=== PATIENT | female | born 1995 | race Caucasian/White ===

== ENCOUNTER 2019-03-25 10:07 | Observation (INO) | payer OTHER ==
--- NOTE | 2019-03-25 11:56 | PDOC ---
Documentation entered by Donya Chapman SCRIBE, acting as scribe for Diana Morrison MD. Diana Morrison MD: This documentation has been prepared by the Adela ponce Nirvannie, SCRIBE, under my direction and personally reviewed by me in its entirety. I confirm that the documentation accurately reflects all work, treatment, procedures, and medical decision making performed by me. History of Present Illness - General Chief Complaint: Blood Transfusion Stated Complaint: BLOOD TRANSFUSION History Source: Patient Exam Limitations: No Limitations - History of Present Illness Initial Comments: 03/25/19 11:55 23-year-old female here from PCPs office for report of anemia. Patient had blood drawn for routine visit 2 weeks ago was found to have a hemoglobin of 6.6. Was told to come to the ED yesterday however she was unable to come due to scheduling difficulty. Patient does currently have 4 kids denies any history of heavy vaginal bleeding or irregular menses no history of known prior anemia. No travel no fever no chills no weight loss patient had seen her PCP 2 weeks ago for concerns of a left breast lump. Denies any history of breast cancer has not had any breast imaging thus far Past History - Past Medical History Allergies/Adverse Reactions: Allergies Allergy/AdvReac Type Severity Reaction Status Date / Time No Known Allergies Allergy Verified 03/25/19 10:22 Home Medications: Ambulatory Orders Ferrous Sulfate 325 mg PO BID #60 tablet 03/25/19 Asthma: No Cancer: No Cardiac Disorders: No COPD: No Diabetes: No HTN: No Seizures: No Thyroid Disease: No - Psycho Social/Smoking Cessation Hx Smoking History: Never smoked Have you smoked in the past 12 months: No Hx Alcohol Use: No Drug/Substance Use Hx: No Hx Substance Use Treatment: No Review of Systems - Review of Systems Comments:: 03/25/19 11:55 Awake alert no acute distress moist mucous membranes lungs are clear bilaterally heart is regular with any murmurs rubs or gallops abdomen is soft nontender skin is warm and dry no rash abdomen soft nontender no CVA tenderness *Physical Exam - Vital Signs Last Vital Signs Temp Pulse Resp BP Pulse Ox 98.3 F 76 16 107/54 L 100 03/25/19 10:17 03/25/19 10:17 03/25/19 10:17 03/25/19 10:17 03/25/19 10:17 ED Treatment Course - LABORATORY CBC & Chemistry Diagram: 03/25/19 12:41 03/25/19 12:41 Medical Decision Making - Medical Decision Making 03/25/19 11:53 Urinary 23-year-old female no past medical history here today complaining of abnormal lab values. Patient states she was being seen by her doctor Dr. Errol Medrano for a concern she had of a breast lump. At that time they decided to send basic lab work labs were drawn 2 weeks ago patient received a call back yesterday stating that she was severely anemic hemoglobin per report was 6.6. Patient denies any history of heavy menses did not feel lightheaded or fatigued. No fevers no chills no history of known anemia no dark black stools or other bleeding. No family history of breast cancer patient states she was not referred for any ultrasound or other follow-up regarding a lump in the PCP felt that it was normal On my exam patient is awake alert no acute distress lungs are clear abdomen is soft nontender plan CBC CMP type and screen to reevaluate for anemia. Will obtain to rule out underlying should patient be anemic she may require transfusion will discuss with patient's PCP Dr. Medrano 03/25/19 15:45 d/w pt regarding risk and benefit of transfusion. at this point is refusing. would like to trial iron supplementation and follow up with DR Medrano. told to call to schedule follow up in the next few days. at this time pt has minimum sxs . not lighteaded, no headache. also recommend fu for her lump in left breast will need breast ultrasound. told to get prescription from pcp. and given fu with breast surgeon, 03/25/19 16:31 pt reconsidered after much time, would like transfusion after, all. dr givens. coveringn for DR Medrano paged for admission. Discharge - Discharge Information Problems reviewed: Yes Clinical Impression/Diagnosis: Anemia Condition: Good - Admission Yes - Additional Discharge Information Prescriptions: Ferrous Sulfate 325 mg PO BID #60 tablet - Follow up/Referral Referrals: Errol Medrano [Primary Care Provider] - - Patient Discharge Instructions Patient Printed Discharge Instructions: Anemia: How Food and Vitamins Can Help , Iron-Deficiency Anemia Additional Instructions: you are anemic with a hemoglobin of 6.8. you should have this followed up with your primary doctor. for feeling short of breath, lightheaded, dizzy, headache or weakness, return for repeat evaluation immediately and possible transfusion. understand your are refusing transfusion today, and you should start taking iron supplement 325mg twice daily for one month. follow up with Dr Medrano call to schedule. - Post Discharge Activity
[2019-03-25 13:05] LABS: BASO % 0.7 % (0-2.0); EOS % 0.8 % (0-4.5); HEMATOCRIT 23.6 % (32.4-45.2); LYMPH % 35.1 % (8-40); MCHC 28.6 g/dl (32.0-36.0); MEAN CELL VOLUME 64.7 fl (80-96); MEAN PLT VOLUME 7.5 fl (7.5-11.1); MONO % 6.6 % (3.8-10.2); NEUT % 56.8 % (42.8-82.8); PLATELET COUNT 339 K/MM3 (134-434); RBC 3.65 M/mm3 (3.60-5.2); RDW 18.4 % (11.6-15.6); WHITE BLOOD COUNT 5.7 K/mm3 (4.0-10.0)
[2019-03-25 13:10] LABS: MCH 18.5 pg (25.7-33.7)
[2019-03-25 13:11] LABS: HEMOGLOBIN 6.8 GM/dL (10.7-15.3)
[2019-03-25 13:28] LABS: ALBUMIN 3.6 g/dl (3.4-5.0); BILIRUBIN,TOTAL 0.3 mg/dL (0.2-1); CALCIUM 8.4 mg/dL (8.5-10.1); CREATININE 0.6 mg/dL (0.55-1.3); POTASSIUM 3.8 mmol/L (3.5-5.1); TOT PROT 7.3 g/dl (6.4-8.2)
[2019-03-25 13:56] LABS: ANISOCYTOSIS 2+; PLATELET ESTIMATE ADEQUATE
[2019-03-25 15:18] LABS: OVALOCYTE 1+
[2019-03-25] MEDS ORDERED: PANTOPRAZOLE 40 MG TABLET ONE (21:29)
[2019-03-25] MEDS: PANTOPRAZOLE 40 MG TABLET PO SCH (21:31)
[2019-03-25 23:42] VITALS: BMI 24.6
[2019-03-26 02:07] LABS: BASO % 0.3 % (0-2.0); EOS % 0.9 % (0-4.5); HEMATOCRIT 26.4 % (32.4-45.2); LYMPH % 31.4 % (8-40); MCHC 30.2 g/dl (32.0-36.0); MEAN CELL VOLUME 66.2 fl (80-96); MONO % 8.5 % (3.8-10.2); NEUT % 58.9 % (42.8-82.8); PLATELET COUNT 304 K/MM3 (134-434); RBC 3.99 M/mm3 (3.60-5.2); RDW 19.8 % (11.6-15.6); WHITE BLOOD COUNT 8.1 K/mm3 (4.0-10.0)
--- NOTE | 2019-03-26 07:26 | HP ---
Admitting History and Physical - Admission History of Present Illness: 23-year-old female here from PCPs office for report of anemia. Patient had blood drawn for routine visit 2 weeks ago for breast lump Was told to come to the ED yesterday however she was unable to come due to scheduling difficulty. Pt denies any history of heavy vaginal bleeding or irregular menses no history of known prior anemia. No travel no fever no chills no weight loss patient Denies any history of breast cancer has not had any breast imaging thus far - Past Medical History Gastrointestinal: Yes: Other (dysphagia) ...LMP: 03/08/19 ...: No - Smoking History Smoking history: Never smoked Have you smoked in the past 12 months: No - Alcohol/Substance Use Hx Alcohol Use: No History of Substance Use: reports: None. denies: Cocaine, Heroin, Marijuana, Prescription, Tranquilizers - Social History ADL: Independent History of Recent Travel: No Home Medications - Allergies Allergies/Adverse Reactions: Allergies Allergy/AdvReac Type Severity Reaction Status Date / Time No Known Allergies Allergy Verified 03/25/19 10:22 - Home Medications Home Medications: Ambulatory Orders Ferrous Sulfate 325 mg PO BID #60 tablet 03/25/19 Review of Systems - Review of Systems Constitutional: reports: Weakness Cardiovascular: denies: Chest Pain, Shortness of Breath Respiratory: denies: Cough Gastrointestinal: reports: Dysphagia. denies: Abdominal Pain, Diarrhea Neurological: reports: No Symptoms Physical Examination Vital Signs: Vital Signs Temperature 98.9 F 03/26/19 05:00 Pulse Rate 81 03/26/19 05:00 Respiratory Rate 18 03/26/19 05:00 Blood Pressure 112/62 03/26/19 05:00 O2 Sat by Pulse Oximetry (%) 99 03/26/19 04:00 Cardiovascular: Yes: Regular Rate and Rhythm, Murmur Respiratory: Yes: Regular, CTA Bilaterally Gastrointestinal: Yes: Normal Bowel Sounds, Soft. 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
[2019-03-26 08:12] LABS: BASO % 0.4 % (0-2.0); EOS % 0.6 % (0-4.5); HEMATOCRIT 25.9 % (32.4-45.2); HEMOGLOBIN 7.9 GM/dL (10.7-15.3); LYMPH % 24.6 % (8-40); MCH 20.1 pg (25.7-33.7); MCHC 30.4 g/dl (32.0-36.0); MEAN CELL VOLUME 66.1 fl (80-96); MEAN PLT VOLUME 7.3 fl (7.5-11.1); MONO % 7.6 % (3.8-10.2); NEUT % 66.8 % (42.8-82.8); PLATELET COUNT 284 K/MM3 (134-434); RBC 3.91 M/mm3 (3.60-5.2); RDW 19.5 % (11.6-15.6); WHITE BLOOD COUNT 7.3 K/mm3 (4.0-10.0)
--- NOTE | 2019-03-26 08:13 | CON.GI ---
Consult Consult Specialty:: GI Referred by:: Dr Davonte Fisher Reason for Consultation:: Dysphagia - History of Present Illness History of Present Illness: Patient is a 23 y/o female with no significant past medical history. Consult was placed for dysphagia. Patient states she has been having difficulty swallowing solid food for 1 month. She states she notices it takes her longer to eat due to the dysphagia. Denies dysphagia with liquids. Patient denies nausea, vomiting, abdominal pain, diarrhea, constipation, melena, rectal bleeding. - History Source History Provided By: Patient Limitations to Obtaining History: No Limitations - Past Medical History ...LMP: 03/08/19 ...: No - Past Surgical History Past Surgical History: Yes: (x 4) - Alcohol/Substance Use Hx Alcohol Use: No History of Substance Use: reports: None. denies: Cocaine, Heroin, Marijuana, Prescription, Tranquilizers - Smoking History Smoking history: Never smoked Have you smoked in the past 12 months: No - Social History Usual Living Arrangement: With Parent ADL: Independent History of Recent Travel: No Home Medications - Allergies Allergies/Adverse Reactions: Allergies Allergy/AdvReac Type Severity Reaction Status Date / Time No Known Allergies Allergy Verified 03/25/19 10:22 - Home Medications Home Medications: Ambulatory Orders Ferrous Sulfate 325 mg PO BID #60 tablet 03/25/19 Review of Systems - Review of Systems Constitutional: reports: No Symptoms Eyes: reports: No Symptoms HENT: reports: No Symptoms Neck: reports: No Symptoms Cardiovascular: reports: No Symptoms Respiratory: reports: No Symptoms Gastrointestinal: reports: Dysphagia Genitourinary: reports: No Symptoms Breasts: reports: No Symptoms Reported Musculoskeletal: reports: No Symptoms Integumentary: reports: No Symptoms Neurological: reports: No Symptoms Endocrine: reports: No Symptoms Hematology/Lymphatic: reports: No Symptoms Psychiatric: reports: No Symptoms Physical Exam-GI Vital Signs: Vital Signs Temperature 98.9 F 03/26/19 05:00 Pulse Rate 81 03/26/19 05:00 Respiratory Rate 18 03/26/19 05:00 Blood Pressure 112/62 03/26/19 05:00 O2 Sat by Pulse Oximetry (%) 99 03/26/19 04:00 Constitutional: Yes: No Distress, Calm Eyes: Yes: Conjunctiva Clear HENT: Yes: Atraumatic Cardiovascular: Yes: Regular Rate and Rhythm Respiratory: Yes: Regular, CTA Bilaterally Gastrointestinal Inspection: Yes: WNL. No: Ascites, Distention, Hernia, Scars, Other ...Auscultate: Yes: Normoactive Bowel Sounds. No: Hyperactive Bowel Sounds, Hypoactive Bowel Sounds, No Bowel Sounds, Other ...Palpate: Yes: Soft. No: Firm/Rigid, Guarding, Hepatomegaly, Mass, Pulsatile Mass, Splenomegaly, Tenderness, Tenderness, Epigastium, Tenderness, Rebound, Other ...Percussion: Yes: Tympanitic. No: Dullness, Fluid Wave, Other Neurological: Yes: Alert, Oriented Psychiatric: Yes: Alert, Oriented Problem List - Problems (1) Dysphagia Code(s): R13.10 - DYSPHAGIA, UNSPECIFIED
--- NOTE | 2019-03-26 08:35 | CONSULT ---
Consultation: CONSULT SERVICE: Hematology/Oncology Resident HISTORY OF PRESENT ILLNESS: 23yo F with no significant history who was sent her from her PCP office due to routine lab draw. Pt was found to be anemic at her PCP office, and confirmed to be anemic here upon initial presentation down to 6.8gm. Pt denies any irregular menses, heavy menses. Pt reports she did have some slight shortness of breath which prompted her routine blood draw which has now resolved. Pt has never taken iron pills or other supplements. She has never seen a aircraft time clerk and is generally healthy. PMHx: no significant history PSHx: Denies SoHx: Tobacco - None Alcohol - None Drugs - Denies LMP 1 month ago; usually regular FamHx: Noncontributory; no clotting or bleeding disorders noted REVIEW OF SYSTEMS: As per HPI PHYSICAL EXAMINATION Vital Signs - 24 hr 03/25/19 03/25/19 03/25/19 10:17 14:30 17:50 Temperature 98.3 F 98 F Pulse Rate 76 Pulse Rate [ 77 78 Apical] Respiratory 16 20 20 Rate Blood Pressure 107/54 L Blood Pressure 106/60 106/66 [Right Arm] O2 Sat by Pulse 100 100 100 Oximetry (%) 03/25/19 03/25/19 03/25/19 19:46 23:31 23:56 Temperature 98.2 F 98.3 F Pulse Rate 71 Pulse Rate [ 65 Apical] Respiratory 20 17 17 Rate Blood Pressure 113/62 Blood Pressure 105/67 [Right Arm] O2 Sat by Pulse 100 100 Oximetry (%) 03/26/19 03/26/19 03/26/19 00:44 01:03 04:00 Temperature 98 F Pulse Rate 70 Pulse Rate [ Apical] Respiratory 18 18 18 Rate Blood Pressure 112/63 Blood Pressure [Right Arm] O2 Sat by Pulse 100 99 Oximetry (%) 03/26/19 05:00 Temperature 98.9 F Pulse Rate 81 Pulse Rate [ Apical] Respiratory 18 Rate Blood Pressure 112/62 Blood Pressure [Right Arm] O2 Sat by Pulse Oximetry (%) GENERAL: Awake, alert, and fully oriented, in no acute distress. HEENT: NC/AT, EOMI, KEISHA, sclera anicteric, no conjunctival pallor, MMM NECK: No JVD, no lymphadenopathy LUNGS: CTA bilaterally. No wheezes, and no crackles. No accessory muscle use. HEART: RRR, normal S1 and S2 without murmur ABDOMEN: Soft, nontender, not distended, normoactive bowel sounds, no guarding, no rebound, no masses. No hepatomegaly EXTREMITIES: 2+ pulses, warm, well-perfused. No calf tenderness. No peripheral edema. PSYCHIATRIC: Cooperative. Good eye contact. Appropriate mood and affect. SKIN: Warm, dry, no rashes or lesions noted. Laboratory Results - last 24 hr 03/25/19 03/25/19 03/25/19 12:41 12:41 12:41 WBC 5.7 RBC 3.65 Hgb 6.8 L* Hct 23.6 L D MCV 64.7 L MCH 18.5 L D MCHC 28.6 L RDW 18.4 H Plt Count 339 D MPV 7.5 Absolute Neuts (auto) 3.2 Neutrophils % 56.8 Lymphocytes % 35.1 D Monocytes % 6.6 Eosinophils % 0.8 Basophils % 0.7 D Nucleated RBC % 0 Hypochromia 3+ Platelet Estimate Adequate Platelet Comment No clumping noted Poikilocytosis 1+ Anisocytosis 2+ Microcytosis 2+ Ovalocytes 1+ Haptoglobin 92 Sodium 142 Potassium 3.8 Chloride 111 H Carbon Dioxide 25 Anion Gap 5 L BUN 8.0 Creatinine 0.6 Est GFR (CKD-EPI)AfAm 147.86 Est GFR (CKD-EPI)NonAf 127.58 Random Glucose 79 Calcium 8.4 L Iron 10 L TIBC 412 Iron Saturation 2 L Unsaturated IBC 402 H Ferritin 1.7 L Total Bilirubin 0.3 AST 17 ALT 17 Alkaline Phosphatase 86 Total Protein 7.3 Albumin 3.6 Serum , Qual Blood Type Antibody Screen Crossmatch 03/25/19 03/25/19 03/26/19 12:41 12:41 01:53 WBC 8.1 RBC 3.99 Hgb 8.0 L Hct 26.4 L MCV 66.2 L MCH 20.0 L MCHC 30.2 L RDW 19.8 H Plt Count 304 MPV 7.0 L Absolute Neuts (auto) 4.8 Neutrophils % 58.9 Lymphocytes % 31.4 Monocytes % 8.5 Eosinophils % 0.9 Basophils % 0.3 Nucleated RBC % 0 Hypochromia Platelet Estimate Platelet Comment Poikilocytosis Anisocytosis Microcytosis Ovalocytes Haptoglobin Sodium Potassium Chloride Carbon Dioxide Anion Gap BUN Creatinine Est GFR (CKD-EPI)AfAm Est GFR (CKD-EPI)NonAf Random Glucose Calcium Iron TIBC Iron Saturation Unsaturated IBC Ferritin Total Bilirubin AST ALT Alkaline Phosphatase Total Protein Albumin Serum , Qual Negative Blood Type O POSITIVE Antibody Screen Negative Crossmatch See Detail 03/26/19 06:40 WBC 7.3 RBC 3.91 Hgb 7.9 L Hct 25.9 L MCV 66.1 L MCH 20.1 L MCHC 30.4 L RDW 19.5 H Plt Count 284 MPV 7.3 L Absolute Neuts (auto) 4.9 Neutrophils % 66.8 Lymphocytes % 24.6 D Monocytes % 7.6 Eosinophils % 0.6 Basophils % 0.4 Nucleated RBC % 0 Hypochromia Platelet Estimate Platelet Comment Poikilocytosis Anisocytosis Microcytosis Ovalocytes Haptoglobin Sodium Potassium Chloride Carbon Dioxide Anion Gap BUN Creatinine Est GFR (CKD-EPI)AfAm Est GFR (CKD-EPI)NonAf Random Glucose Calcium Iron TIBC Iron Saturation Unsaturated IBC Ferritin Total Bilirubin AST ALT Alkaline Phosphatase Total Protein Albumin Serum , Qual Blood Type Antibody Screen Crossmatch Active Medications Generic Name Dose Route Start Last Admin Trade Name Freq PRN Reason Stop Dose Admin Iron Sucrose 200 mg/ Sodium 100 mls @ 100 mls/hr 03/26/19 09:00 Chloride IVPB 03/26/19 09:59 ONCE ONE Pantoprazole Sodium 40 mg 03/25/19 21:15 03/25/19 21:31 Protonix - PO 40 mg DAILY CECE Administration ASSESSMENT/PLAN: Severe Microcytic anemia Dysphagia --Reticulocyte count added on to today's labs --Iron studies performed which indicate severe iron deficiency --Agree with iron sucrose already placed --Iron deficit 583mg: Continue Venofer 200mg q48h x3 doses --Monitor for signs of bleeding alongside of CBC trend --If patient continues to remain anemic despite adequate iron studies may need Hgb Electrophoresis, but this can be done on outpatient basis depending on severity of anemia --GI working up dysphagia Case to be discussed Salvador Aguiar, DO - IM PGY-3 Visit type - Emergency Visit Emergency Visit: Yes ED Registration Date: 03/26/19 Care time: The patient presented to the Emergency Department on the above date and was hospitalized for further evaluation of their emergent condition. - New Patient This patient is new to me today: Yes Date on this admission: 03/26/19 - Critical Care Critical Care patient: No ATTENDING PHYSICIAN STATEMENT I saw and evaluated the patient. I reviewed the resident's note and discussed the case with the resident. I agree with the resident's findings and plan as documented. SUBJECTIVE: OBJECTIVE: ASSESSMENT AND PLAN:
[2019-03-26 08:55] LABS: ALBUMIN 3.4 g/dl (3.4-5.0); BILIRUBIN,TOTAL 0.9 mg/dL (0.2-1); BLOOD UREA NITROGEN 10.9 mg/dL (7-18); CALCIUM 8.3 mg/dL (8.5-10.1); CREATININE 0.6 mg/dL (0.55-1.3); POTASSIUM 3.6 mmol/L (3.5-5.1); TOT PROT 6.9 g/dl (6.4-8.2)
[2019-03-26] MEDS ORDERED: IRON SUCROSE INJECTION 200 MG in SODIUM CHLORIDE 90 ML IVPB ONE (09:00)
[2019-03-26] MEDS: PANTOPRAZOLE 40 MG TABLET PO SCH (10:13)
--- NOTE | 2019-03-26 13:49 | PN ---
Progress Note, Physician - Current Medication List Current Medications: Active Medications Pantoprazole Sodium (Protonix -) 40 mg PO DAILY CECE Last Admin: 03/26/19 10:13 Dose: 40 mg - Objective Vital Signs: Vital Signs Temperature 98.8 F 03/26/19 09:31 Pulse Rate 86 03/26/19 09:31 Respiratory Rate 20 03/26/19 09:31 Blood Pressure 114/47 L 03/26/19 09:31 O2 Sat by Pulse Oximetry (%) 99 03/26/19 09:00 Labs: CBC, BMP 03/26/19 06:40 03/26/19 06:40 Problem List - Problems (1) Anemia Code(s): D64.9 - ANEMIA, UNSPECIFIED (2) Breast lump Code(s): N63.0 - UNSPECIFIED LUMP IN UNSPECIFIED BREAST (3) Dysphagia Code(s): R13.10 - DYSPHAGIA, UNSPECIFIED
[2019-03-26 14:53] VITALS: BP 111/62; PULSE 82; TEMP 98.5
--- NOTE | 2019-03-26 16:38 | CON.OBG ---
Consult Consult Specialty:: wool dyer Referred by:: Dr. Walters Reason for Consultation:: Severe anemia. - History of Present Illness Chief Complaint: Patient was seen for vague complaints. Hb was 6! Sourse of bleeding is being investigaterd. 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: No: Alzheimer's, CVA, Dementia, Migraine, Multiple Sclerosis, Peripheral Neuropathy, Parkinson's, Seizure, Syncope, TIA, Vertigo, Other Cardio/Vascular: No: AFIB, Aneurysm, Aortic Insufficiency, Aortic Stenosis, CAD , CHF, Deep Vein Thrombosis, HTN, Hyperlipdemia, NH, Mitral Insufficiency, Mitral Stenosis, Murmur, Pulmonary Hypertension, Other Pulmonary: No: Asthma, Bronchitis, Cancer, COPD, O2 Dependent, Pneumonia, Previously Intubated, Pulmonary Embolus, Pulmonary Fibrosis, Sleep Apnea, Other Gastrointestinal: Yes: Other (dysphagia) Hepatobiliary: No: Cirrhosis, Cholelithiasis, Cholecystitis, Choledocholithiasis , Hepatitis A, Hepatitis B, Hepatitis C, Other Renal/: No: Renal Failure, Renal Inusuff, BPH, Cancer, Hematuria, Hemodialysis , Neurogenic Bladder, Renal Calculi, UTI, Other Reproductive: No: Ectopic , Endometriosis, Fibroids, PID, Polycystic Ovary Syndrome, Postmenopausal, Other ...LMP: 03/08/19 ...: No Infectious Disease: No: AIDS, C-Diff, Herpes Zoster, HIV, MRSA, STD's, Tuberculosis, VREF, Other Psych: No: Addictions, Anxiety, Bipolar, Depression, Panic, Psychosis, Schizophrenia, Other Musculoskeletal: No: Bursitis, Chronic low back pain, Hemiparesis, Hemiplegia, Osteoarthritis, Paraplegia, Other Rheumatology: No: Fibromyalgia, Gout, Lupus, Rheumatoid Arthritis, Sarcoidosis, Vasculitis, Other ENT: No: Allergic Rhinitis, Sinusitis, Other Endocrine: No: [place]'s Disease, [place]'s Disease, Diabetes Insipidus, Diabetes Mellitus, Hyperparathyroidism, Hyperthyroidism, Hypothyroidism, Osteopenia, SIADH, Other Dermatology: No: Basal Cell, Cellulitis, Eczema, Melanoma, Psoriasis, Squamous Cell, Other - Past Surgical History Past Surgical History: Yes: (x 4) - Alcohol/Substance Use Hx Alcohol Use: No History of Substance Use: reports: None. denies: Cocaine, Heroin, Marijuana, Prescription, Tranquilizers - Smoking History Smoking history: Never smoked Have you smoked in the past 12 months: No - Social History Usual Living Arrangement: With Parent ADL: Independent History of Recent Travel: No Home Medications - Allergies Allergies/Adverse Reactions: Allergies Allergy/AdvReac Type Severity Reaction Status Date / Time No Known Allergies Allergy Verified 03/25/19 10:22 - Home Medications Home Medications: Ambulatory Orders Ferrous Sulfate 325 mg PO BID #60 tablet 03/25/19 Pantoprazole Sodium [Protonix -] 40 mg PO DAILY #30 tablet.ec 03/26/19 Review of Systems - Review of Systems Constitutional: reports: No Symptoms Eyes: reports: No Symptoms HENT: reports: No Symptoms Neck: reports: No Symptoms Cardiovascular: reports: No Symptoms Respiratory: reports: No Symptoms Gastrointestinal: reports: Other (Difficulties swallowing.) Genitourinary: reports: No Symptoms Breasts: reports: No Symptoms Reported Musculoskeletal: reports: No Symptoms Integumentary: reports: No Symptoms Neurological: reports: No Symptoms Endocrine: reports: No Symptoms Hematology/Lymphatic: reports: No Symptoms Psychiatric: reports: No Symptoms 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 Vital Signs: Vital Signs Temperature 98.5 F 03/26/19 14:50 Pulse Rate 82 03/26/19 14:50 Respiratory Rate 20 03/26/19 14:50 Blood Pressure 111/62 03/26/19 14:50 O2 Sat by Pulse Oximetry (%) 99 03/26/19 09:00 Constitutional: Yes: Well Nourished, No Distress, Calm Eyes: Yes: WNL, Conjunctiva Clear, EOM Intact HENT: Yes: WNL, Atraumatic, Normocephalic Neck: Yes: WNL, Supple, Trachea Midline Cardiovascular: Yes: WNL, Regular Rate and Rhythm Respiratory: Yes: WNL, Regular, CTA Bilaterally Gastrointestinal: Yes: WNL ...Rectal Exam: Yes: WNL Renal/: Yes: WNL Pelvis: Yes: Other (Patient declined pelvic examination.) Vaginal Exam: Yes: Other Cervix: Yes: Other Uterus: Yes: Other Breast(s): Yes: WNL Musculoskeletal: Yes: WNL Extremities: Yes: WNL Integumentary: Yes: WNL Neurological: Yes: WNL, Alert, Oriented ...Motor Strength: WNL Psychiatric: Yes: WNL, Alert, Oriented Labs: CBC, BMP 03/26/19 06:40 03/26/19 06:40 Problem List - Problems (1) Anemia Code(s): D64.9 - ANEMIA, UNSPECIFIED Assessment/Plan BUSINESS PROFESSOR 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 Patient is para 4 with 4 sections. Not sexually active at present. Patient has Nexplanon for control. Menses are reasonably regular and not very heavy. LMP about 4 weeks ago. Patient is declining examination. She is scheduled in the clinic next week. Neither patient nor I think that she has such a significant blood loss from her menses. Thank you very much for allowing me to see this most pleasant young lady.
== END 2019-03-26 18:09 | disposition home or self-care (01) ==
LOC: JER 10:07 → JERBED 16:36 → INTOOBSV 16:36 → UNDOADMOB 16:36 → J7W 23:18 → JERBED 23:18 → J7W 03-26 13:34
PROVIDERS: ADMIT Family Medicine; ATTEND Family Medicine
PROC: 30233N1 Transfusion of Nonautologous Red Blood Cells into Peripheral Vein, Percutaneous Approach (ICD-10-PCS; principal; 2019-03-26)
PROC: 3E033GC Introduction of Other Therapeutic Substance into Peripheral Vein, Percutaneous Approach (ICD-10-PCS; 2019-03-26)
DX: D64.9 Anemia, unspecified (principal); N63.0 Unspecified lump in unspecified breast; R13.10 Dysphagia, unspecified
CPT/HCPCS: 36415; 36430; 76856-TC; 80053; 82728; 83010; 83540; 83550; 84703; 85025; 85044; 86850; 86900; 86901; 86922; 96365; 99285-25; G0378; J1756; P9038; P9058

== ENCOUNTER 2024-05-24 14:36 | Emergency (ER) | payer OTHER ==
[2024-05-24 14:44] VITALS: BP 112/69; PULSE 100; RESP 18; TEMP 98.2; BMI 27.3
[2024-05-24 15:56] LABS: ABSOLUTE IMMATURE GRANULOCYTES 0.02 x10^3/uL (0.0-0.031); BASOPHILS # 0.01 x10^3/uL (0.01-0.08); EOSINOPHIL % 0.4 % (0.7-5.8); EOSINOPHILS # 0.03 x10^3/uL (0.04-0.36); HEMATOCRIT 25.7 % (34.1-44.9); HEMOGLOBIN 7.1 g/dL (11.2-15.7); MCHC 27.6 g/dl (32.2-35.5); MEAN CELL VOLUME 70.6 fl (79.4-94.8); MEAN PLT VOLUME 8.5 fl (9.4-12.3); MONOCYTE # 0.49 x10^3/uL (0.24-0.86); MONOCYTE % 7.3 % (4.7-12.5); PLATELET COUNT 316 x10^3/uL (182-369); RDW 20.4 % (12.1-16.5)
[2024-05-24 16:00] LABS: EPI CELLS >36 /uL (0-25.1); HYALINE CASTS 3 /uL (0-3.1); PH,URINE 5.5 (5.0-8.0); URINE APPEARANCE CLOUDY; URINE BACTERIA 63 /uL (0-1359); URINE BILIRUBIN NEGATIVE (NEGATIVE); URINE COLOR YELLOW; URINE GLUCOSE (UA) NEGATIVE (NEGATIVE); URINE KETONE TRACE (NEGATIVE); URINE LEUK ESTERASE NEGATIVE (NEGATIVE); URINE NITRITE NEGATIVE (NEGATIVE); URINE PROTEIN NEGATIVE (NEGATIVE); URINE RBC 191 /uL (0-23.9); URINE UROBILINOGEN 0.2 mg/dL (0.2-1.0); URINE WBC 8 /uL (0-25.8)
[2024-05-24 16:01] LABS: HCG,QUALITATIVE URINE Negative
[2024-05-24 16:22] LABS: POTASSIUM 3.8 mmol/L (3.5-5.1)
[2024-05-24 16:24] LABS: CALCIUM 9.4 mg/dL (8.5-10.1)
[2024-05-24 16:25] LABS: ALBUMIN 3.6 g/dl (3.4-5.0); BLOOD UREA NITROGEN 10.5 mg/dL (7-18)
[2024-05-24 16:28] LABS: CREATININE 0.7 mg/dL (0.55-1.3)
[2024-05-24 16:30] LABS: BILIRUBIN,TOTAL 0.2 mg/dL (0.2-1); TOT PROT 7.2 g/dl (6.4-8.2)
[2024-05-24 17:23] LABS: HCV DIAGNOSTIC IN-HOUSE W/RFLX NON-REACTIVE (NONREACTIVE)
[2024-05-24 17:24] LABS: HIV INTERPRETATION NEGATIVE (NEGATIVE)
== END 2024-05-24 19:17 | disposition home or self-care (01) ==
LOC: JER 14:36
DX: N93.9 Abnormal uterine and vaginal bleeding, unspecified (principal); R00.0 Tachycardia, unspecified; R50.9 Fever, unspecified
CPT/HCPCS: 36415; 76830-TC; 80053; 81003; 84703; 85025; 86803; 87389; 99284-25